=== PATIENT | male | born 1975 | race African-American/Black ===

== ENCOUNTER 2019-05-07 09:55 | Emergency (ER) | payer OTHER ==
[2019-05-07 10:13] VITALS: BP 141/76
[2019-05-07] MEDS ORDERED: PRED20TA PO (10:16)
[2019-05-07] MEDS ORDERED: ALBU2.5V8 IH (10:16)
--- NOTE | 2019-05-07 10:17 | PHYS DOC ---
Past History Past Medical History: No Pertinent History Additional Past Surgical Histo: Knee Smoking: Non-smoker Alcohol Use: None Drug Use: None Adult General Chief Complaint Chief Complaint: FEVER HPI HPI 44-year-old male presents with 2 week history of nasal congestion, subjective fever/chills, and productive cough. Reports cough has become worse and changed from clear to yellow sputum. Spouse reports patient has subjective fever last night. Denies known sick contacts. Denies Tenderness. Denies trauma. Review of Systems Review of Systems Constitutional: Reports subjective fever and chills and generalized malaise Eyes: Denies redness or eye pain HENT: Ports nasal congestion and sore throat Respiratory: Reports productive cough; denies shortness of breath Cardiovascular: Denies chest pain or palpitations GI: Denies abdominal pain, nausea, or vomiting : Denies dysuria or hematuria Musculoskeletal: Denies back pain or joint pain Integument: Denies rash or skin lesions Neurologic: Denies headache, focal weakness or sensory changes Complete systems were reviewed and found to be within normal limits, except as documented in this note. Current Medications Current Medications Current Medications Medications (Trade) Dose Ordered Sig/Yajaira Start Time Stop Time Status Last Admin Dose Admin Dexamethasone (Decadron) 10 mg 1X ONCE 05/07/19 10:15 05/07/19 10:16 UNV Physical Exam Physical Exam Constitutional: Well developed, well nourished, no acute distress, non-toxic appearance HENT: Normocephalic, atraumatic, oropharynx moist, nasal congestion noted, p harynx without significant erythema or exudate Eyes: Conjunctiva normal, no discharge Neck: Normal range of motion, no tenderness, supple, no meningeal signs Cardiovascular: Heart rate normal, regular rhythm Lungs & Thorax: Bilateral breath sounds clear to auscultation, no wheezing Skin: Warm, dry, no erythema, no rash Extremities: No tenderness, ROM intact, no edema Neurologic: Alert and oriented X 3, no focal deficits noted Psychologic: Affect normal, judgement normal EKG EKG [] Radiology/Procedures Radiology/Procedures PROCEDURE: CHEST PA & LATERAL CHEST PA LATERAL History: Cough for 2 weeks COMPARISON: None FINDINGS: Heart size not enlarged. No evidence of pneumothorax. No pleural effusion. No consolidating infiltrate. Bones appear grossly intact. IMPRESSION: No evidence of consolidating infiltrate. Electronically signed by: Cornelio Kenny MD (05/07/2019 10:37 AM) [facility] Course & Med Decision Making Course & Med Decision Making Pertinent Imaging studies reviewed. (See chart for details) Patient presents with history of present illness and physical exam concerning for possible bronchitis. Afebrile upon arrival. Symptomatic treatment provided with oral steroid. Chest x-ray without signs of pneumonia. Symptoms likely secondary to viral bronchitis. Influenza swab held as treatment would not change. Patient stable for discharge with outpatient follow-up with PCP. Discussed findings and plan with patient and family, who acknowledge understanding and agreement. Dragon Disclaimer Dragon Disclaimer This electronic medical record was generated, in whole or in part, using a voice recognition dictation system. Departure Departure: Impression: Primary Impression: Acute bronchitis Disposition: HOME, SELF-CARE Condition: STABLE Referrals: MAMTA SNOW PA-C (PCP) Patient Instructions: Acute Bronchitis, [id number] Additional Instructions: Hold antibiotics for 48 hours. If symptoms worsen or for fever > 100.3 F after 48 hours then start antibiotics as prescribed. Scripts Azithromycin (AZITHROMYCIN TABLET) 250 Mg Tablet 1 PKG PO UD for bronchitis, #6 TAB Take 2 tablets today and then one tablet every day thereafter for the next 4 days Prov: CORNELIO VILCHIS DO 05/07/19 Prednisone (PREDNISONE) 20 Mg Tablet 2 TAB PO DAILY for Bronchitis, #8 TAB Start this prescription on Wednesday05/08/19 Prov: CORNELIO VILCHIS DO 05/07/19 Albuterol Sulfate (PROAIR HFA INHALER) 8.5 Gm Hfa.aer.ad 2 PUFF IH Q4-6HRS PRN for wheezing, #1 INHALER 0 Refills Prov: CORNELIO VILCHIS DO 05/07/19 Problem Qualifiers Primary Impression: Acute bronchitis Bronchitis organism: unspecified organism Qualified Codes: J20.9 - Acute bronchitis, unspecified CORNELIO VILCHIS DO May 07, 2019 10:16
[2019-05-07] MEDS ORDERED: AZIT250T6 PO (10:24)
[2019-05-07] MEDS ORDERED: DEXAMETHASONE 4 MG TABLET PO ONE (10:30)
--- NOTE | 2019-05-07 10:40 | RAD ---
CHEST PA LATERAL History: Cough for 2 weeks COMPARISON: None FINDINGS: Heart size not enlarged. No evidence of pneumothorax. No pleural effusion. No consolidating infiltrate. Bones appear grossly intact. IMPRESSION: No evidence of consolidating infiltrate. Electronically signed by: Cornelio Kenny MD (05/07/2019 10:37 AM) [facility]
== END 2019-05-07 10:27 | disposition home or self-care (01) ==
LOC: ER 09:55
DX: J20.9 Acute bronchitis, unspecified (principal)
CPT/HCPCS: 71046; 99284